=== PATIENT | female | born 1990 | race Caucasian/White ===

== ENCOUNTER 2017-02-11 22:02 | Emergency (ER) | payer MEDICAID ==
[2017-02-11 22:27] LABS: AMORPHOUS SEDIMENT,URINE 1+ /HPF; APPEARANCE,URINE TURBID; BILIRUBIN,URINE NEGATIVE (NEGATIVE); GLUCOSE, URINE NEGATIVE (NEGATIVE); KETONES,URINE NEGATIVE (NEGATIVE); LEUKOCYTE ESTERASE,URINE MODERATE (NEGATIVE); NITRITE,URINE NEGATIVE (NEGATIVE); PROTEIN,URINE 100 mg/dL (NEGATIVE); URINE SPECIFIC GRAVITY 1.019; UROBILINOGEN,URINE NEGATIVE mg/dL (<2.0)
[2017-02-11 23:50] VITALS: BP 115/70
== END 2017-02-12 | disposition left against medical advice (07) ==
LOC: ER 22:02
DX: Z53.21 Procedure and treatment not carried out due to patient leaving prior to being seen by health care provider (principal)
CPT/HCPCS: 81001; 87086

== ENCOUNTER 2020-04-06 20:54 | Emergency (ER) | payer MEDICAID ==
[2020-04-06 21:01] VITALS: BP 97/64
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
--- NOTE | 2020-04-06 21:56 | RADIOLOGY REPORT (SQ) ---
EXAM DESCRIPTION: XR FOREARM 2 VIEWS COMPLETED DATE/TME: 04/06/2020 21:08 CLINICAL HISTORY: 29 years, Female, pain COMPARISON: None. FINDINGS: Comminuted displaced distal radius fracture with significant apex volarly angulation. There is regional soft tissue swelling. Nondisplaced ulnar styloid fracture. Carpal row alignment is maintained. IMPRESSION: Angulated displaced distal radius fracture. Nondisplaced ulnar styloid fracture.
[2020-04-06] MEDS ORDERED: HYDROCODONE/ACETAMINOPHEN 5-325 MG (6 TAB/ER DISP) PO PRN (22:04)
[2020-04-06] MEDS ORDERED: HYDROCODONE/ACETAMINOPHEN 5-325 MG TABLET PO ONE (22:04)
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
== END 2020-04-06 22:32 | disposition home or self-care (01) ==
LOC: ER 20:54
DX: S52.502A Unspecified fracture of the lower end of left radius, initial encounter for closed fracture (principal); S52.615A Nondisplaced fracture of left ulna styloid process, initial encounter for closed fracture; V86.99XA Unspecified occupant of other special all-terrain or other off-road motor vehicle injured in nontraffic accident, initial encounter; F17.200 Nicotine dependence, unspecified, uncomplicated
CPT/HCPCS: 99284

== ENCOUNTER 2020-04-13 09:52 | Day surgery (SDC) | payer MEDICAID ==
[2020-04-11 10:10] LABS: ABSOLUTE EOSINOPHILS # (AUTO) 0.1 10^3/uL (0.0-0.6); ABSOLUTE LYMPHOCYTES (AUTO) 1.2 10^3/uL (0.5-4.7); ABSOLUTE MONOCYTES (AUTO) 0.5 10^3/uL (0.1-1.4); ABSOLUTE NEUT (AUTO) 9.9 10^3/uL (1.7-8.2); BASOPHILS % (AUTO) 0.4 % (0-2); EOSINOPHILS % (AUTO) 1.1 % (0-6); HEMATOCRIT 42.4 % (36.0-47.0); HEMOGLOBIN 14.8 g/dL (12.0-15.5); LYMPHOCYTES % (AUTO) 9.9 % (13-45); MEAN CORPUSCULAR HEMOGLOBIN 35.2 pg (27.0-33.4); MEAN CORPUSCULAR HGB CONC 34.9 g/dL (32.0-36.0); MEAN CORPUSCULAR VOLUME 101 fl (80-97); MONOCYTES % (AUTO) 4.1 % (3-13); PLATELET COUNT 236 10^3/uL (150-450); RED BLOOD COUNT 4.21 10^6/uL (3.72-5.28); RED CELL DISTRIBUTION WIDTH 12.9 % (11.5-14.0); SEGMENTED NEUTROPHILS % (AUTO) 84.5 % (42-78); TOTAL CELLS COUNTED % (AUTO) 100 %; WHITE BLOOD COUNT 11.7 10^3/uL (4.0-10.5)
[~2020-04-13 09:52] MED LIST: LACTATED RINGERS 1000 ML IV PRN; LIDOCAINE 0.5% INJ-PF (5 MG/ML) 50 ML SDV SUBCUT PRN
[2020-04-13] MEDS ORDERED: HYDROMORPHONE HCL INJ/PF 2 MG/ML AMPULE ONE (10:11)
[2020-04-13] MEDS ORDERED: FENTANYL CITRATE INJ/PF 100 MCG/2 ML AMPUL ONE (10:11)
[2020-04-13] MEDS ORDERED: MIDAZOLAM 2 MG/2 ML INJ ONE (10:12)
[2020-04-13] MEDS ORDERED: PROPOFOL INJ 200 MG/20 ML VIAL IV ONE (10:12)
[2020-04-13] MEDS ORDERED: CEFAZOLIN 2 GM/D5W RTU 2 GM/50 ML RTUPB IV ONE (10:34)
[2020-04-13] MEDS ORDERED: OXYCODONE HCL SR 10 MG TABLET PO ONE (10:35)
[2020-04-13] MEDS ORDERED: ALPRAZOLAM 0.5 MG TABLET ONE (10:35)
[2020-04-13] MEDS ORDERED: ACETAMINOPHEN 325 MG TABLET ONE (10:35)
[2020-04-13] MEDS ORDERED: ALPRAZOLAM 0.5 MG TABLET PO ONE (10:45)
[2020-04-13] MEDS ORDERED: DEXAMETHASONE SOD PHOSPHATE INJ 4 MG/1 ML VIAL ONE (12:55)
[2020-04-13] MEDS ORDERED: ONDANSETRON HCL INJ/PF 4 MG/2 ML SDV ONE (12:55)
[2020-04-13] MEDS ORDERED: BUPIVACAINE HCL 0.25 % INJ/PF (2.5 MG/1 ML) 30 ML VIAL ONE (13:07)
[2020-04-13] MEDS ORDERED: LIDOCAINE 1% INJ-PF (10 MG/ML) 30 ML SDV ONE (13:07)
[2020-04-13] MEDS ORDERED: PROMETHAZINE HCL INJ 25 MG/1 ML VIAL ONE (13:09)
[2020-04-13] MEDS ORDERED: SCOPOLAMINE HYDROBROMIDE 1.5 MG PATCH.TD72 ONE (13:09)
[2020-04-13] MEDS ORDERED: MORPHINE SULFATE 10 MG/ML INJ IV PRN (14:02)
[2020-04-13] MEDS ORDERED: FENTANYL CITRATE INJ/PF 100 MCG/2 ML AMPUL IV PRN ×3 (14:02)
[2020-04-13] MEDS ORDERED: DIPHENHYDRAMINE HCL 50 MG/ML VIAL IV PRN (14:02)
[2020-04-13] MEDS ORDERED: ONDANSETRON HCL INJ/PF 4 MG/2 ML SDV IV PRN (14:02)
[2020-04-13] MEDS ORDERED: MEPERIDINE HCL/PF INJ 25 MG/1 ML DISP.SYRIN IV PRN (14:02)
[2020-04-13] MEDS: MORPHINE SULFATE 10 MG/ML INJ ONE ×4 (15:10→15:25)
[2020-04-13] MEDS ORDERED: KETOROLAC TROMETHAMINE INJ/PF 30 MG/1 ML SDV ONE (15:47)
--- NOTE | 2020-04-13 15:47 | RADIOLOGY REPORT (SQ) ---
EXAM DESCRIPTION: NO CHG FLUORO; WRIST LEFT 2 VIEWS IMAGES COMPLETED DATE/TIME: 04/13/2020 3:20 pm REASON FOR STUDY: ORIF LEFT WRIST ASSISTED WITH FLUORO IN OR COMPARISON: None. FLUOROSCOPY TIME: 55 seconds 5 Images saved to PACS LIMITATIONS: None. PROCEDURE: ORIF left wrist FINDINGS: Images from fluoro document the procedure. IMPRESSION: ORIF left wrist. Refer to operative note for further information. COMMENT: PQRS 6045F: Fluoroscopy time of the procedure is documented in the report. TECHNICAL DOCUMENTATION: JOB ID: [id number] 2010 [employer]- All Rights Reserved Reading location - IP/workstation name: [email or web address]
--- NOTE | 2020-04-13 15:47 | RADIOLOGY REPORT (SQ) ---
EXAM DESCRIPTION: NO CHG FLUORO; WRIST LEFT 2 VIEWS IMAGES COMPLETED DATE/TIME: 04/13/2020 3:20 pm REASON FOR STUDY: ORIF LEFT WRIST ASSISTED WITH FLUORO IN OR COMPARISON: None. FLUOROSCOPY TIME: 55 seconds 5 Images saved to PACS LIMITATIONS: None. PROCEDURE: ORIF left wrist FINDINGS: Images from fluoro document the procedure. IMPRESSION: ORIF left wrist. Refer to operative note for further information. COMMENT: PQRS 6045F: Fluoroscopy time of the procedure is documented in the report. TECHNICAL DOCUMENTATION: JOB ID: [id number] 2010 [employer]- All Rights Reserved Reading location - IP/workstation name: [email or web address]
--- NOTE | 2020-04-13 15:59 | Operative Report ---
Operative Report DATE OF SURGERY: 04/13/20 PREOPERATIVE DIAGNOSIS: Left distal radius fracture, intra-articular POSTOPERATIVE DIAGNOSIS: Left distal radius fracture, intra-articular. OPERATION: Left distal radius open reduction internal fixation SURGEON: GÓMEZ ODELL JR ANESTHESIA: GA COMPLICATIONS: None ESTIMATED BLOOD LOSS: 5 cc PROCEDURE: The patient was brought to the operating suite placed under general anesthesia. 2 g Ancef were given. The left lower extremities prepped draped sterile sterile fashion. The skin was marked and left arm exsanguinated. A incision was made over the volar aspect of the wrist and then subsequently a FCR approach was utilized to reach the distal radius. The distal radius fracture was visualized which consisted of a lunate facet fragment as well as a radial styloid fragment. After these were adequately exposed the fracture was gently debrided to allow for visualization and reduction with an adequate fowler of the fracture fragments. This was done with the assistance of a [place] elevator. After this a volar plate was placed and with the assistance of fluoroscopy distal screws were fixed into the distal fragments. Following screw fixation of the distal segment utilizing both locking and nonlocking screw's, the proximal plate was then pulled to bone with nonlocking screws. Final fluoroscopy was taken. The wound was copiously irrigated with sterile saline. The pronator quadratus was lightly reapproximated over the plate. Subcutaneous sutures with 3-0 Monocryl were applied in inverted interrupted fashion. A running horizontal mattress 3-0 nylon was used in the skin. The wound was injected with local anesthetic. A sterile dressing was then placed followed by a well-padded volar splint. The patient was then transferred to the PACU in stable condition.
[2020-04-13] MEDS ORDERED: KETOROLAC TROMETHAMINE 60 MG/2 ML SDV IM PRN (16:01)
[2020-04-13] MEDS ORDERED: RINGERS SOLUTION,LACTATED 1,000 ML IV PRN (16:01)
[2020-04-13] MEDS ORDERED: OXYCODONE-ACETAMINOPHEN 5-325 MG TABLET PO PRN (16:01)
[2020-04-13] MEDS ORDERED: ALBUTEROL SULFATE HFA (90 MCG/PUFF) 8 GM MDI (1 MDI/ER DISP) IH PRN (16:02)
[2020-04-13] MEDS ORDERED: ACETAMINOPHEN 325 MG TABLET PO ONE (16:15)
[2020-04-13] MEDS ORDERED: OXYCODONE-ACETAMINOPHEN 5-325 MG TABLET ONE (16:29)
[2020-04-13] MEDS ORDERED: ALBUTEROL SULFATE HFA (90 MCG/PUFF) 200 PUFF/8.5 GM MDI IH PRN (16:45)
[2020-04-13 17:17] VITALS: BP 120/73
--- NOTE | 2020-04-14 20:12 | Discharge Summary ---
Discharge Summary (SDC) - Discharge Final Diagnosis: Left intra-articular distal radius fracture. Date of Surgery: 04/13/20 Condition: Stable Forms: ASU Anesthesia D/C Instruction, Discharge POC-Surgical Service Treatment or Instructions: Maintain splint until seen in the office. Non-weight bearing LUE until further evaluation Keep clean and dry Take pain medication as prescribed. Take Vitamin C 500 mg PO BID x 1 month Referrals: GÓMEZ ODELL JR, DO [ACTIVE PROVISIONAL STAFF] - (Follow up as instructed.) Respiratory Treatments at Home: Deep Breathing/Coughing Discharge Activity: Activity As Tolerated, No Driving, No Lifting Over 10 Pounds Home Care Assistance: Provided by Family Report the Following to Your Physician Immediately: Shortness of Breath, Increase in Pain, Fever over 101 Degrees, Unusual Bleeding, Redness, Swelling, Warmth, IV Site Infection Signs
== END 2020-04-13 17:05 | disposition home or self-care (01) ==
LOC: OROUT 09:52
PROVIDERS: ATTEND Orthopaedic Surgery
DX: S52.572A Other intraarticular fracture of lower end of left radius, initial encounter for closed fracture (principal); X58.XXXA Exposure to other specified factors, initial encounter; Y93.I9 Activity, other involving external motion; J44.9 Chronic obstructive pulmonary disease, unspecified; D64.9 Anemia, unspecified; Z88.5 Allergy status to narcotic agent; Z03.818 Encounter for observation for suspected exposure to other biological agents ruled out
CPT/HCPCS: 36415; 85025; 87635; 73100; 25608; J3490 ×6; J2250; J1100; J1885; J2270; J1170; J2550; J2405; J2704; J0690; C9803; 01830; C1713; J3010